=== PATIENT | female | born 1945 ===

== ENCOUNTER 2018-03-25 09:05 | Emergency (ER) | payer OTHER ==
[~2018-03-25] VITALS: Ht 149.9 cm; Wt 50.8 kg
[2018-03-25] MEDS ORDERED: NORVASC5 MG PO (09:10)
[2018-03-25] MEDS ORDERED: VASOTEC5 MG PO (09:10)
[2018-03-25] MEDS ORDERED: ZYRTEC10 MG PO (13:07)
== END 2018-03-25 13:17 | disposition home or self-care (01) ==
LOC: ER 09:05
DX: R60.0 Localized edema (principal); T80.62XA Other serum reaction due to vaccination, initial encounter; T50.B95A Adverse effect of other viral vaccines, initial encounter; Y92.89 Other specified places as the place of occurrence of the external cause

== ENCOUNTER 2020-07-17 04:02 | Outpatient (CLI) | payer OTHER ==
[~2020-07-17 04:02] MED LIST: NORVASC5 MG PO; VASOTEC5 MG PO; ZYRTEC10 MG PO
== END 2020-07-17 04:04 | disposition home or self-care (01) ==
LOC: PPH VACUNA 04:02
PROVIDERS: ATTEND Emergency Medicine Pediatric Emergency Medicine
DX: Z23 Encounter for immunization (principal)

== ENCOUNTER → 2020-08-07 | Outpatient (CLI) | payer OTHER | END | disposition home or self-care (01) | LOC: PPH VACUNA | PROVIDERS: ATTEND Emergency Medicine Pediatric Emergency Medicine | DX: Z23 Encounter for immunization (principal) ==